=== PATIENT | male | born 1995 | race Caucasian/White ===

== ENCOUNTER 2019-10-17 14:23 | Emergency (ER) | payer BC ==
[2019-10-17] MEDS ORDERED: Ondansetron INJ* 2 MG/ML VIAL IV ONE (14:33)
[2019-10-17] MEDS ORDERED: NS 0.9% 1000 ML** 1,000 ML IV ONE (14:33)
[2019-10-17] MEDS ORDERED: Morphine 4 MG/ML VIAL (1 ml) 4 MG/ML VIAL IV ONE (14:33)
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
[2019-10-17 15:23] LABS: Hematocrit 47 % (42-52); Hemoglobin 16.7 g/dL (14.0-18.0); Mean Corpuscular HGB Conc 35 g/dL (31-36); Mean Corpuscular Hemoglobin 31 pg (27-31); Mean Corpuscular Volume 86 fL (80-94); Mean Platelet Volume 9.6 fL (7.4-10.4); Platelet Count 236 10^3/uL (150-450); Red Blood Count 5.46 10^6 /uL (4.18-5.48); Red Cell Distribution Width 13 % (10-15); White Blood Count 13.2 10^3/uL (3.5-10.8)
[2019-10-17 15:36] LABS: ABS Lymphocytes 0.9 10^3/ul (1.0-4.8); ABS Monocytes 0.6 10^3/ul (0-0.8); ABS Neutrophils 11.7 10^3/ul (1.5-7.7); Lymphocyte % 6.5 %
[2019-10-17 15:46] LABS: Albumin 4.2 g/dL (3.2-5.2); Albumin/Globulin Ratio 1.4 (1-3); BUN/Creatinine Ratio 16.3 (8-20); C Reactive Protein 5.73 mg/L (<8.01); Calcium 9.2 mg/dL (8.6-10.3); EGFR African American 123.4 (>60); Potassium 3.7 mmol/L (3.5-5.0); Total Bilirubin 0.5 mg/dL (0.2-1.0); Total Protein 7.2 g/dL (6.4-8.9)
[2019-10-17 16:54] LABS: Urine Appearance Cloudy; Urine Bilirubin Negative (Negative); Urine Blood 2+ (Negative); Urine Color Yellow; Urine Glucose Negative (Negative); Urine Ketones Negative (Negative); Urine Nitrite Negative (Negative); Urine Protein Negative (Negative); Urine Specific Gravity 1.024 (1.010-1.030); Urine Urobilinogen Negative (Negative)
[2019-10-17 17:05] LABS: Urine Bacteria Absent (Absent); Urine Red Blood Cell 2+(6-10/hpf) (Absent); Urine White Blood Cell Absent (Absent)
[2019-10-17 17:26] VITALS: BP 119/76
== END 2019-10-17 17:29 | disposition home or self-care (01) ==
LOC: ED 14:23
DX: R10.84 Generalized abdominal pain (principal); R11.0 Nausea; Z04.1 Encounter for examination and observation following transport accident
CPT/HCPCS: 36415; 74176; 80053; 81003; 81015; 82550; 83605; 83690; 85025; 86140; 96361; 96374; 96375; 99284; J2270; J2405